=== PATIENT | female | born 2000 | race Caucasian/White ===

== ENCOUNTER → 2018-09-10 | Outpatient (CLI) | payer OTHER, SELFPAY ==
[2018-09-10 17:42] LABS: Estradiol 100.7 pg/mL; Free T3 2.8 pg/mL (2.18-3.98); T4 Free Direct 0.96 ng/dL (0.76-1.46); Thyroid Stim Hormone (TSH) 1.16 uIU/mL (0.358-3.74)
[2018-09-10 19:03] LABS: Chlamydia Trachomatis by PCR Negative (Negative); Neisserai gonorrhoeae by PCR Negative (Negative); Probe Check PASS; Sample Adequacy Control PASS; Specimen Processing Control PASS
[2018-09-12 13:22] LABS: Cancer Antigen 125 14.1 U/mL (0.0-38.1)
== END | disposition home or self-care (01) ==
LOC: LABSPEC 13:41
PROVIDERS: Visit Provider Obstetrics & Gynecology
DX: N94.10 Unspecified dyspareunia (principal); N95.2 Postmenopausal atrophic vaginitis; R10.2 Pelvic and perineal pain; Z11.3 Encounter for screening for infections with a predominantly sexual mode of transmission
CPT/HCPCS: 82670; 84439; 84443; 84481; 86304; 87491; 87591

== ENCOUNTER → 2019-06-13 | Outpatient (CLI) | payer OTHER, SELFPAY | END | disposition home or self-care (01) | PROVIDERS: Visit Provider Obstetrics & Gynecology | DX: R30.0 Dysuria (principal) | CPT/HCPCS: 87086; 87088; 87186 ==

== ENCOUNTER → 2019-09-13 11:13 | Outpatient (CLI) | payer OTHER, SELFPAY ==
[2019-09-13 13:09] LABS: Estradiol < 11.0 pg/mL
[2019-09-14 04:26] LABS: Sex Hormone-binding Globulin 81.7 nmol/L (24.6-122.0)
== END ==
PROVIDERS: Visit Provider Obstetrics & Gynecology
DX: Z12.4 Encounter for screening for malignant neoplasm of cervix (principal); Z11.3 Encounter for screening for infections with a predominantly sexual mode of transmission; L68.0 Hirsutism; E28.1 Androgen excess
CPT/HCPCS: 36415; 82627; 82670; 84270; 84403; 82626

== ENCOUNTER → 2020-09-14 | Outpatient (CLI) | payer OTHER, SELFPAY ==
[2020-09-17 20:07] LABS: Chlamydia By Nucleic Acid AMP Negative (Negative)
[2020-09-17 21:52] LABS: Gonococcus By Nucleic Acid AMP Negative (Negative)
== END | disposition home or self-care (01) ==
LOC: LABSPEC 15:04
PROVIDERS: Visit Provider Obstetrics & Gynecology
DX: Z11.3 Encounter for screening for infections with a predominantly sexual mode of transmission (principal)
CPT/HCPCS: 87491; 87591